=== PATIENT | female | born 1980 | race Asian ===

== ENCOUNTER 2019-10-22 06:48 | Emergency (ER) | payer OTHER, SELFPAY ==
[2019-10-22] VITALS (21 sets, daily range): BP systolic 117–139; BP diastolic 71–103; PULSE 69–93; RESP 10–19; TEMP 36.8; O2SAT 77–100
--- NOTE | ~2019-10-22 | XR_ITS ---
EXAMINATION: XR chest 2V 10/22/2019 07:32 INDICATION: Midsternal chest pain. PROCEDURE: 2 view chest COMPARISON: No prior studies for comparison. FINDINGS: The lungs are clear. The cardiomediastinal silhouette is within normal limits. There are no pleural effusions. There is no pneumothorax suspected. IMPRESSION: 1: NO ACUTE CARDIOPULMONARY DISEASE. Reviewed, dictated and finalized at location A.
--- NOTE | 2019-10-22 07:00 | ECG_ITS ---
Measurements Intervals [place] Rate: 72 P: 75 NC: 159 QRS: -26 QRSD: 82 T: 39 QT: 386 QTc: 423 Interpretive Statements SINUS RHYTHM DELAYED PRECORDIAL R/S TRANSITION BORDERLINE T WAVE ABNORMALITY- ANTERIOR LEADS BASELINE WANDER- I, II, AVR, AVL, AVF BORDERLINE ECG Electronically Signed On 10-22-2019 8:33:07 CDT by Anthony Tripp D.O.
--- NOTE | 2019-10-22 07:01 | ED.CHESTPAIN ---
HPI - Chest Pain General Chief Complaint: Chest Pain Stated Complaint: chest tightness Time Seen by Provider: 10/22/19 06:50 Source: RN notes reviewed History of Present Illness HPI narrative: Patient presents emergency department from home for chest tightness. Patient states the symptoms began last night. Patient states she feels tightness across her bilateral upper chest going into her back. Patient states she also feels tightness across her bilateral upper shoulders she denies any shortness of breath or cough. States that she was having some sinus drainage on Sunday and called her PCP and is been started on steroids for this. Denies any fevers or chills abdominal pain nausea vomiting or any other symptoms. Patient states she has been more anxious recently. Related Data Allergies Allergy/AdvReac Type Severity Reaction Status Date / Time No Known Allergies Allergy Unverified 10/22/17 07:34 Review of Systems Review of Systems: Narrative: Gen.: Denies fevers or chills Eyes: Denies eye pain or visual change ENT: Reports nasal congestion Respiratory: Denies shortness of breath or cough CV: Reports chest pain GI: Denies abdominal pain nausea, emesis or diarrhea Musculoskeletal: Denies back pain or muscle pain Neuro: Denies numbness, tingling, weakness or focal weakness Skin: Denies rash Psych: Reports anxiety Except as documented, all other systems reviewed and negative [facility] Past Medical History Medical History (Updated 10/22/19 @ 10:48 by Dionisio Walters DO) Patient denies significant medical history Social History Social History (Updated 10/22/19 @ 07:02 by Dionisio Walters DO) Smoking status: Never smoker Exam Narrative: Exam Narrative: APPEARANCE: No acute distress, nontoxic, resting in bed EYES: EOMI HEENT: Normocephalic, atraumatic, OMM RESPIRATORY: No respiratory distress Clear to auscultation bilaterally with no rhonchi wheezing or rales. CARDIOVASCULAR: Regular rate and rhythm without murmurs rubs or gallops. ABDOMINAL: Soft, nontender, nondistended, no rebound or guarding MUSCULOSKELETAl: Moves all extremities. No clubbing, cyanosis or edema. NEURO: Awake and alert. Following commands, speech normal, no focal deficits SKIN:: Warm, dry. No rashes lesions or abrasions PSYCHIATRIC: Normal affect/mood, Course Course Emergency Course: Patient states symptoms are resolved following Toradol and GI cocktail Discussed with patient results of workup and diagnosis. Discussed need for follow-up with primary care, proper use of medication, and reasons to return to the emergency department. Patient understands and agrees to current treatment plan. Discussed with patient use of ibuprofen for at home. She states that she would rather take aspirin and will take [id number] aspirin as needed Vital Signs Vital signs: Vital Signs Temperature 98.3 F 10/22/19 06:54 Pulse Rate 87 10/22/19 06:54 Respiratory Rate 16 10/22/19 06:54 Blood Pressure 139/103 H 10/22/19 06:54 Pulse Oximetry 100 10/22/19 06:54 Temperature 98.3 F 10/22/19 06:54 Pulse Rate 87 10/22/19 06:54 Respiratory Rate 16 10/22/19 06:54 Blood Pressure 139/103 H 10/22/19 06:54 Pulse Oximetry 100 10/22/19 06:54 MDM - Chest Pain MDM Narrative Medical decision making narrative: Patient's EKGs and labs are without significant high risk changes. Cardiac risk factors reviewed. Patient is felt likely low risk for ACS and reasonable for further risk stratification testing as an outpatient. Pain was not sudden or maximal in onset without tearing or ripping quality. No other signs of symptoms suggest aortic dissection. A low-risk Wells criteria is noted, PE is felt to be unlikely. No pneumonia seen on evaluation today. Patient is felt to be a reasonable candidate for continued evaluation as an outpatient. Symptoms been ongoing for the past 2 days with trending troponins in ED Lab Data Result diagrams: 10/22/19 07:04
[2019-10-22] MEDS: KETOROLAC 30 MG/ML VIAL (*BKC) IV PUSH (07:07)
[2019-10-22 07:14] LABS: Basophils Absolute Auto 0.1 K/mm3 (0.0-0.1); Eosinophils Absolute Auto 0.1 K/mm3 (0-0.3); Eosinophils Percent Auto 2.1 % (0-4.4); Hematocrit 41.2 % (37.0-47.0); Hemoglobin 13.7 g/dL (12.0-15.0); Immature Granulocyte Absolute 0.02 K/mm3 (0.00-0.031); Immature Granulocyte Percent A 0.3 % (0-0.5); Lymphocytes Absolute Auto 1.79 K/mm3 (0.9-3.2); Lymphocytes Percent Auto 29.1 % (18.3-44.2); Mean Corpuscular HGB Conc 33.3 g/dl (32-36); Mean Corpuscular Hemoglobin 31.6 pg (26-34); Mean Corpuscular Volume 94.9 fl (80-100); Mean Platelet Volume 9.1 fl (7.4-10.4); Monocytes Absolute Auto 0.4 K/mm3 (0.1-0.6); Monocytes Percent Auto 5.9 % (2.6-8.5); Neutrophils Absolute Auto 3.8 K/mm3 (1.3-6.7); Neutrophils Percent Auto 61.6 % (45.5-73.1); Platelet Count Result 376 k/mm3 (150-375); Red Blood Count 4.34 M/mm3 (4.2-5.4); Red Cell Distribution Width 12.1 % (11.5-14.5); White Blood Count 6.2 K/mm3 (4.5-10.0)
[2019-10-22 07:23] LABS: INR 0.9; Prothrombin Time 11.9 Seconds (11.1-14.7)
[2019-10-22 07:24] LABS: Partial Thromboplastin Time 29.9 SECONDS (22.3-36.8)
[2019-10-22 07:28] LABS: Alanine Aminotransferase 26 U/L (4-35); Albumin Level 4.7 g/dL (3.5-5.1); Alkaline Phosphatase 54 U/L (38-126); Aspartate Amino Transferase 23 U/L (14-36); Bilirubin,Total 0.2 mg/dL (0.2-1.3); Blood Urea Nitrogen 7 mg/dL (7-17); Calcium 9.2 mg/dL (8.4-10.2); Carbon Dioxide 28 mmol/L (22-30); Chloride 103 mmol/L (98-107); Estimated CRCL calculation 113 ml/min; Estimated Glomerular Filt Rate > 60; Glucose 116 mg/dL (65-105); Potassium 4.5 mmol/L (3.4-5.0); Sodium 139 mmol/L (137-145)
[2019-10-22 07:39] LABS: Troponin I < 0.012 ng/mL (0.000-0.034)
[2019-10-22 07:50] LABS: Add Urine Microscopic? NO; Appearance Urine Clear (Clear); Bilirubin Urine Negative (Negative); Blood Urine Negative (Negative); Color Urine Straw (Yellow); Glucose Urine UA Negative (Negative); Ketones Urine Negative (Negative); Leukocyte Esterase Ur Negative LEU/UL (Negative); Mucus Urine Rare /lpf; Nitrate Urine Negative (Negative); Protein Urine Negative (Negative); RBC Urine 0-2 /hpf (0-2); Squamous Epithelial Cell Urine Rare /hpf (Few); Urobilinogen Urine Negative mg/dL (<2.0); WBC Urine 0-3 /hpf
[2019-10-22 07:59] LABS: D Dimer 0.27 ug/mL (<0.48)
[2019-10-22 10:16] LABS: Troponin I < 0.012 ng/mL (0.000-0.034)
== END 2019-10-22 11:15 | disposition home or self-care (01) ==
PROVIDERS: Emergency Provider Emergency Medicine
DX: R07.89 Other chest pain (principal); R94.31 Abnormal electrocardiogram [ECG] [EKG]
CPT/HCPCS: 36415; 71046; 80053; 81003; 81025; 84484; 85025; 85380; 85610; 85730; 93005; 96374; 99284; A9270; J1885

== ENCOUNTER 2023-04-09 03:00 | Day surgery (SDC) | payer OTHER, SELFPAY ==
[2023-03-28 14:31] VITALS: BMI 23.7
[2023-04-09 08:57] VITALS: BP 104/74; PULSE 81; RESP 18; TEMP 36.5; O2SAT 100
[2023-04-09] MEDS: LACTATED RINGERS 1,000 ML 150 ML IV CONT (09:06)
--- NOTE | 2023-04-09 09:24 | P.PNAN_ITS ---
Anes - Initial Pre Proc Eval Procedure: Operation Date: 04/09/23 10:00 Proposed Procedures p Screening Colonoscopy - Donta Chan MD Date/Time: 04/09/23 09:24 Surgeon: Donta Chan MD Pre Op Diagnosis: Pers Hx of colon polyps Patient Data Age: 43 Gender: F Height: 1.55 m Weight: 55.6 kg Last Vital Signs Temp 97.7 F 04/09/23 08:57 Pulse 81 04/09/23 08:57 Resp 18 04/09/23 08:57 BP 104/74 04/09/23 08:57 Pulse Ox 100 04/09/23 08:57 O2 Del Method Room Air 04/09/23 08:57 Allergies Allergy/AdvReac Type Severity Reaction Status Date / Time No Known Allergies Allergy Unverified 04/09/23 08:56 Home Medications Medication Instructions Recorded Confirmed Type alpha lipoic acid 300 mg capsule 300 mg PO BID 03/28/23 03/28/23 History cholecalciferol (vitamin D3) 25 2,000 unit PO DAILY 03/28/23 03/28/23 History mcg (1,000 unit) capsule famotidine 20 mg tablet (Pepcid) 20 mg PO DAILY PRN Acid Reflux 03/28/23 03/28/23 History ferrous sulfate 325 mg (65 mg 325 mg PO DAILY 03/28/23 03/28/23 History iron) tablet (FeroSul) fexofenadine 30 mg tablet 120 mg PO DAILY PRN allergies 03/28/23 03/28/23 History neomycin 3.5 mg/g-polymyxin B 1 ea EACH EYE DAILY 03/28/23 03/28/23 History 10,000 unit/g-dexameth 0.1 % eye oint Patient hx anesthesia problems: none Family hx anesthesia problems: none Results Review: All pre-operative results and documents have been reviewed as part of the pre- operative evaluation. [facility] Past Medical History Medical History (Updated 10/23/19 @ 00:00 by Clarisse Tuttle) Patient denies significant medical history Social History Social History (Updated 10/22/19 @ 07:02 by Dionisio Walters DO) Smoking status: Never smoker Alcohol intake: never Substance use: never Substance use type: does not use Living arrangements: alone Spiritual care concerns: No Anes - Eval Final PreProcedure Day of Procedure 04/09/23 09:24 Patient weight: normal Heart: regular rate and rhythm Lungs: clear to auscultation Airway: Mallampati scale class II Neurological: alert and oriented Last oral intake: >/= 8 hours ASA classification: II Emergent: no Anesthetic plan: proceed Anesthesia type and monitoring: general GIVS and standard monitoring Results Review: All pre-operative results and documents have been reviewed as part of the pre- operative evaluation. Informed Consent: The patient's anesthetic plan and its attendant risks and benefits were discussed with the patient/family/POA. Questions were solicited and answers provided to the satisfaction of the patient/family/POA.
--- NOTE | 2023-04-09 09:30 | PM.HPGS ---
History of Present Illness History of Present Illness Consent: Risks, benefits, and alternatives have been discussed and questions answered. Patient agrees to proceed with procedure. Chief complaint: Pers Hx of colon polyps Narrative: Gia Farnsworth is a 43 year old female here for screening colonoscopy, last one 2017 Review of Systems Constitutional: Constitutional: Denies headache(s) and Denies weakness Eyes: Eyes: Denies blurry vision ENT: Reports Normal hearing present, Denies headache(s) and Denies neck pain Cardiovascular: Cardiovascular: Denies chest pain and Denies dyspnea Respiratory: Respiratory: Denies dyspnea Gastrointestinal: Gastrointestinal: Reports no additional gastrointestinal complaints Genitourinary: Genitourinary: Denies dysuria Musculoskeletal: Musculoskeletal: Denies neck pain Integumentary/Breasts: Skin/Breast: Denies dry skin Neurologic: Reports Normal hearing present, Denies headache(s) and Denies weakness Psychiatric: Psychiatric: Denies anxiety Endocrine: Endocrine: Denies change in body appearance Hematologic/Lymphatic: Hematologic/Lymphatic: Denies easy bleeding Allergic/Immunologic: Allergic/Immunologic: Denies urticaria PMFSH Past Medical History Medical History (Updated 04/09/23 @ 09:31 by Donta Chan MD) Colon cancer screening Patient denies significant medical history Social History Social History (Updated 10/22/19 @ 07:02 by Dionisio Walters DO) Smoking status: Never smoker Alcohol intake: never Substance use: never Substance use type: does not use Living arrangements: alone Spiritual care concerns: No Meds Home Medications and Allergies Home Medications Medication Instructions Recorded Confirmed Type alpha lipoic acid 300 mg capsule 300 mg PO BID 03/28/23 03/28/23 History cholecalciferol (vitamin D3) 25 2,000 unit PO DAILY 03/28/23 03/28/23 History mcg (1,000 unit) capsule famotidine 20 mg tablet (Pepcid) 20 mg PO DAILY PRN Acid Reflux 03/28/23 03/28/23 History ferrous sulfate 325 mg (65 mg 325 mg PO DAILY 03/28/23 03/28/23 History iron) tablet (FeroSul) fexofenadine 30 mg tablet 120 mg PO DAILY PRN allergies 03/28/23 03/28/23 History neomycin 3.5 mg/g-polymyxin B 1 ea EACH EYE DAILY 03/28/23 03/28/23 History 10,000 unit/g-dexameth 0.1 % eye oint Allergies Allergy/AdvReac Type Severity Reaction Status Date / Time No Known Allergies Allergy Unverified 04/09/23 08:56 Vital Signs Vital Signs - 24 hr 04/09/23 08:57 Temperature 97.7 F Pulse Rate 81 Respiratory Rate 18 Blood Pressure 104/74 Pulse Oximetry 100 Oxygen Delivery Room Air Exam Const: General: comfortable and no acute distress HENMT: Face/Nose/Sinus: Normal nares present Eyes: General: appearance normal, both eyes and all related structures Neck: Neck: no JVD Resp: Auscultation: clear to auscultation bilaterally Cardio: Rate: regular rate Rhythm: regular rhythm GI: Inspection: non-distended GI Palp: Yes Soft to palpation Skin: General skin exam: normal color Neuro: General: gait normal Speech: normal speech Extrem: General: normal to inspection Psych: Mental Status: mental status grossly normal Assessment and Plan Assessment and plan (1) Colon cancer screening: Code(s): Z12.11 - Encounter for screening for malignant neoplasm of colon Status: Acute Assessment and Plan: colonoscopy
[2023-04-09 09:52] VITALS: BP 100/95; PULSE 71; RESP 18; O2SAT 100
[2023-04-09 10:02] VITALS: BP 98/55; PULSE 75; RESP 24; O2SAT 100
[2023-04-09 10:10] VITALS: BP 103/68; PULSE 76; RESP 15; O2SAT 100
[2023-04-09 10:20] VITALS: BP 111/75; PULSE 77; RESP 16; O2SAT 100
== END 2023-04-09 10:22 | disposition home or self-care (01) ==
PROVIDERS: PCP Family Medicine; Visit Provider Internal Medicine Gastroenterology
PROC: 0DJD8ZZ Inspection of Lower Intestinal Tract, Via Natural or Artificial Opening Endoscopic (ICD-10-PCS; CPT 45378; principal; 2023-04-09 10:00)
DX: Z12.11 Encounter for screening for malignant neoplasm of colon (principal); K63.5 Polyp of colon; K64.8 Other hemorrhoids
CPT/HCPCS: 45385; 88305; J2704; J7120